=== PATIENT | female | born 1990 | race Two or more races ===

== ENCOUNTER 2021-10-10 09:26 | Emergency (ER) | payer OTHER, MEDICAID, SELFPAY ==
[2021-10-10 09:41] VITALS: BP 123/82; PULSE 96; RESP 18; TEMP 36.7; O2SAT 98; BMI 24.1
[2021-10-10 10:01] LABS: IDNOW Serial# 9DD0AD1C; Strep A Nucleic Acid Positive (Negative)
[2021-10-10 10:11] LABS: COVID-19 Test Negative (Negative)
--- NOTE | 2021-10-10 10:17 | ED.URI ---
HPI - URI/Sore Throat General Chief Complaint: Upper Respiratory Symptoms Stated Complaint: sore throat, body ache Time Seen by Provider: 10/10/21 10:11 Source: patient Mode of arrival: ambulatory Limitations: no limitations History of Present Illness MD elicited complaint: sore throat Onset (ago): day(s) (Yesterday) Consistency: constant and progressively worsening Severity: mild Able to tolerate fluids by mouth: Yes Exacerbating factors: swallowing Relieving factors: nothing Context: sick contacts (Son + for strep ) Associated symptoms: myalgias Treatments prior to arrival: none Related Data Previous Rx's Medication Instructions Recorded amoxicillin 875 mg-potassium 1 tab PO BID 10 Days #20 tab 10/10/21 clavulanate 125 mg tablet (Augmentin) Allergies Allergy/AdvReac Type Severity Reaction Status Date / Time No Known Allergies Allergy Verified 10/10/21 09:41 Review of Systems Review of Systems: Constitutional : No Weight loss, No Fever, No Chills, No Night Sweats, No Fatigue, No Malaise ENT/Mouth : + Sore Throat, No Hearing loss, No Ear Pain, No Nasal Congestion, No Sinus Pain, No Hoarseness, No Rhinorrhea, No Swallowing Difficulty Eyes: No Eye Pain, No Swelling, No Redness, No Foreign Body, No Discharge, No Vision Changes Cardiovascular : No Chest Pain, No SOB, No Dyspnea on Exertion, No Orthopnea, No Edema, No Palpitations Respiratory : No Cough, No Sputum, No Wheezing, No Smoke Exposure, No Dyspnea Gastrointestinal : No Nausea, No Vomiting, No Diarrhea, No Constipation, No abdominal Pain, No Hematochezia, No Melena Genitourinary : no irregular bleeding, No Dysuria, No Urinary Frequency, No Hematuria, No Urinary Incontinence, No Urgency, No Flank Pain, No Urinary Flow Changes, No Hesitancy Musculoskeletal : No joint pain, + Myalgias, No Joint Swelling Skin : No Skin Lesions, No rash Neuro : No Weakness, No Numbness, No Paresthesias, No Loss of Consciousness, No Dizziness, No Headache Psych : No Anxiety/Panic, No Depression, No SI/HI/AH/VH, No Social Issues, Heme/Lymph: No Bruising, No Bleeding,No Lymphadenopathy Endocrine : No Polyuria, No Polydipsia, No Temperature Intolerance Yes all other systems are reviewed and are negative [facility] [place] Past Medical History Attestation statement: The following information was validated with the patient. Medical History Asthma Social History Social History Advance Directives: No Patient : No Physical Exam Vital Signs: Vital Signs: Last Vital Signs Temp 98.1 F 10/10/21 09:41 Pulse 96 10/10/21 09:41 Resp 18 10/10/21 09:41 BP 123/82 10/10/21 09:41 Pulse Ox 98 10/10/21 09:41 Body Mass Index 24.1 vital signs have been reviewed as normal and appeared to be correct. Blood pressure normal. Heart rate normal. Respiration rate normal. Temperature normal. Oxygen saturation normal. Appearance: Alert. Oriented X3. No acute distress. Head: Normal external exam. Normocephalic. Atraumatic. Eyes: PERRLA. EOMI. Conjunctiva and sclera normal. Eyelids normal. ENT: EAC normal. TM's Normal. Posterior pharynx mildly erythematous. No exudate is noted. Uvula midline. Moist mucous membranes. No trismus noted. No drooling noted. No muffled voice noted. Neck: Normal inspection. Neck supple. FROM. No adenopathy. Thyroid Normal. No meningeal signs. No neck mass noted. CVS: Normal heart rate and rhythm. Heart sound normal. Pulses normal throughout. No murmurs/rales/gallops. Respiratory: No respiratory distress. Painless inspiration. Breath sounds normal. No wheezes/rales/rhonchi noted. Chest nontender. No accessory muscle usage noted or decreased air movement noted. Abdomen: Soft and nontender. Bowel sounds normal in all 4 quadrants. No distention noted. No organomegaly noted. No visible injury noted. Back: Full range of motion noted. No rashes/lesion/induration/fluctuance or signs of infection noted. Skin: Skin warm and dry. Normal skin color. Normal skin turgor. No rashes/lesions/lacerations noted. Extremities: Extremities exhibit normal range of motion. Extremities nontender. Neuro: Oriented X 3. No motor deficit. No sensory deficit. Reflexes normal. Normal steady gait. No focal neuro deficits noted. Course Course Course Narrative: 30-year-old female presenting to the ED with complaints of body aches and sore throat since yesterday. Reports that her son was seen here and tested positive for strep over the weekend. She denies recent travel or any other sick contacts. She denies any other symptoms. Patient negative for COVID. Positive for strep. Will DC home antibiotics and symptomatic treatment instructions return if any new or worsening symptoms and to follow up with primary care provider. Patient understands agrees with this plan. MDM - URI/Sore Throat Medical Records Attestation: I reviewed the patient's medical records. Lab Data Attestation: I reviewed the patient's lab results. Labs: Lab Results 10/10/21 10/10/21 Range/Units 09:46 09:46 COVID-19 ([facility]ADD[facility]) Negative (Negative) COVID-19 Clin Com See Note S. pyogenes GrpA ARIANA Positive A (Negative) Discharge Plan Discharge Clinical Impression: Acute bacterial pharyngitis Patient Disposition: Home, Self-Care Instructions: Pharyngitis (ED) Prescriptions: New amoxicillin-pot clavulanate [Augmentin] 875-125 mg tablet 1 tab PO BID 10 Days Qty: 20 RF: 0 Referrals: Corazon Gaming MD [Primary Care Provider] - 2 days Print Language: Greek
== END 2021-10-10 11:37 | disposition home or self-care (01) ==
LOC: HO.ED 10:22
PROVIDERS: Emergency Provider Emergency Medicine; PCP Internal Medicine
DX: J02.9 Acute pharyngitis, unspecified (principal); M79.10 Myalgia, unspecified site; Z20.822 Contact with and (suspected) exposure to COVID-19
CPT/HCPCS: 36415; 87635; 87651; 99283

== ENCOUNTER 2022-11-19 13:40 | Emergency (ER) | payer OTHER, MEDICAID, SELFPAY ==
[2022-11-19 16:04] VITALS: BP 126/81; PULSE 130; RESP 16; TEMP 36.8; O2SAT 96; BMI 24.1
--- NOTE | 2022-11-19 16:05 | ED.URI ---
HPI - URI/Sore Throat General Chief Complaint: Upper Respiratory Symptoms <JEAN Lerner - Last Filed: 11/19/22 16:06> Stated Complaint: fever chill body aches <JEAN Lerner - Last Filed: 11/19/22 16:06> Time Seen by Provider: 11/19/22 17:47 <JEAN Lerner - Last Filed: 11/19/22 16:06> Source: patient <Eulalio Freitas MD - Last Filed: 11/19/22 18:03> Mode of arrival: ambulatory <Eulalio Freitas MD - Last Filed: 11/19/22 18:03> Limitations: no limitations <Eulalio Freitas MD - Last Filed: 11/19/22 18:03> History of Present Illness HPI Narrative: Patient been congested for last 3 days along with other family member coughing mostly dry cough no fever has body aches <Eulalio Freitas MD - Last Filed: 11/19/22 18:03> Related Data Home Medications: Previous Rx's Medication Instructions Recorded amoxicillin 875 mg-potassium 1 tab PO BID 10 days #20 tabs 10/10/21 clavulanate 125 mg tablet (Augmentin) benzonatate 200 mg capsule 200 mg PO TID PRN cough #20 caps 11/19/22 <JEAN Lerner - Last Filed: 11/19/22 16:06> Allergies/Adverse Reactions: Allergies Allergy/AdvReac Type Severity Reaction Status Date / Time No Known Allergies Allergy Verified 10/10/21 09:41 <JEAN Lerner - Last Filed: 11/19/22 16:06> Review of Systems Review of Systems: Yes all other systems are reviewed and are negative <Eulalio Freitas MD - Last Filed: 11/19/22 18:03> [facility] Past Medical History Medical History: Medical History Asthma <JEAN Lerner - Last Filed: 11/19/22 16:06> Social History Social History: Social History Advance Directives: No Advance Directives Information Provided: No <JEAN Lerner - Last Filed: 11/19/22 16:06> Physical Exam Vital Signs: Vital Signs: Last Vital Signs Temp 98.2 F 11/19/22 16:04 Pulse 130 H 11/19/22 16:04 Resp 16 11/19/22 16:04 BP 126/81 11/19/22 16:04 Pulse Ox 96 11/19/22 16:04 O2 Del Method 11/19/22 16:04 BMI result Body Mass Index 24.1 <JEAN Lerner - Last Filed: 11/19/22 16:06> Vital Signs: Last Vital Signs Temp 98.2 F 11/19/22 16:04 Pulse 130 H 11/19/22 16:04 Resp 16 11/19/22 16:04 BP 126/81 11/19/22 16:04 Pulse Ox 96 11/19/22 16:04 O2 Del Method 11/19/22 16:04 BMI result Body Mass Index 24.1 <Eulalio Freitas MD - Last Filed: 11/19/22 18:03> Appearance: Alert. Oriented X3. No acute distress. ENT: Pharynx normal. Oral Mucosa moist clear rhinorrhea Neck: Normal inspection. Neck supple. CVS: Normal heart rate and rhythm. Pulses normal. Respiratory: No respiratory distress. Equal air entry bilateral, no wheezing/rales/rhonchi abd soft and NT Skin: Skin warm and dry. Normal skin color. Normal skin turgor. Extremities: No lower extremity edema. Neuro: Oriented X 3. <Eulalio Freitas MD - Last Filed: 11/19/22 18:03> Course Course Course Narrative: RME-16:05PM - 32-year-old female presenting with URI complaints that started on Saturday which include fevers, chills, fatigue, malaise, nasal congestion/rhinorrhea, sore throat worse today. has similar symptoms. Son at bedside is also being checked in due to he has similar symptoms. They recently traveled to [place] Oct 27, 2022. No other recent travel. Plan: COVID/RSV/flu swab and rapid strep ordered at this time. Patient will be sent back to the waiting room to be evaluated in [facility] <JEAN Lerner - Last Filed: 11/19/22 16:06> Medical Decision Making Lab Data [facility] Lab Attestation statement: I reviewed the patient's lab results. <Eulalio Freitas MD - Last Filed: 11/19/22 18:03> Labs: Lab Results 11/19/22 11/19/22 Range/Units 16:31 16:31 Influenza Type A (PCR) POSITIVE A (Negative) Influenza Type B (PCR) NEGATIVE (Negative) RSV RNA Qual (PCR) NEGATIVE (Negative) SARS-CoV-2 RNA (RT-PCR) NEGATIVE (Negative) S. pyogenes GrpA ARIANA Negative (Negative) <JEAN Lerner - Last Filed: 11/19/22 16:06> Lab Results 11/19/22 11/19/22 Range/Units 16:31 16:31 Influenza Type A (PCR) POSITIVE A (Negative) Influenza Type B (PCR) NEGATIVE (Negative) RSV RNA Qual (PCR) NEGATIVE (Negative) SARS-CoV-2 RNA (RT-PCR) NEGATIVE (Negative) S. pyogenes GrpA ARIANA Negative (Negative) <Eulalio Freitas MD - Last Filed: 11/19/22 18:03> Discharge Plan Discharge Clinical Impression: Influenza <JEAN Lerner - Last Filed: 11/19/22 16:06> Patient Disposition: Home, Self-Care <JEAN Lerner - Last Filed: 11/19/22 16:06> Instructions: Influenza (ED) <JEAN Lerner - Last Filed: 11/19/22 16:06> Additional Instructions: Drink plenty of fluids Tylenol/Motrin for fever or body aches Cough drops as prescribed Follow with PCP as needed <JEAN Lerner - Last Filed: 11/19/22 16:06> Prescriptions: New benzonatate 200 mg capsule 200 mg PO TID PRN (Reason: cough) Qty: 20 0RF No Action amoxicillin-pot clavulanate [Augmentin] 875-125 mg tablet 1 tab PO BID 10 Days Qty: 20 0RF <JEAN Lerner - Last Filed: 11/19/22 16:06>
[2022-11-19 16:51] LABS: IDNOW Serial# 6674DD1D; Strep A Nucleic Acid Negative (Negative)
[2022-11-19 17:15] LABS: Influenza A PCR POSITIVE (Negative); Influenza B PCR NEGATIVE (Negative); Resp Syncy Virus RNA Qual PCR NEGATIVE (Negative); SARS COV2 PCR INHOUSE NEGATIVE (Negative)
[2022-11-19] MEDS: Benzonatate 100 MG CAPSULE 200 MG PO (18:09)
== END 2022-11-19 18:41 | disposition home or self-care (01) ==
PROVIDERS: Physician Assistant Medical; Emergency Provider Internal Medicine; PCP Internal Medicine
DX: J11.1 Influenza due to unidentified influenza virus with other respiratory manifestations (principal); Z20.822 Contact with and (suspected) exposure to COVID-19
CPT/HCPCS: 0241U; 87651; 99282; 99283